=== PATIENT | male | born 1995 | race Hispanic/Latino ===

== ENCOUNTER 2018-01-10 11:49 | Emergency (ER) | payer OTHER ==
[~2018-01-10] VITALS: Ht 162.6 cm; Wt 63.5 kg
[2018-01-10 12:04] VITALS: BP 141/87
--- NOTE | 2018-01-10 13:02 | ED GI/GU/ABDOMINAL COMPLAINT ---
History of Present Illness General Chief Complaint: Abdominal Pain/Flank Pain Stated Complaint: ABD PAIN VOMITING Source: patient Exam Limitations: no limitations Vital Signs & Intake/Output Vital Signs & Intake/Output Vital Signs Date Time Temp Pulse Resp B/P B/P Pulse O2 O2 Flow FiO2 Mean Ox Delivery Rate 01/10 1204 97.0 45 16 141/87 99 Room Air ED Intake and Output 01/11 0000 01/10 1200 Intake Total 1100 Output Total Balance 1100 Intake, IV 1100 Patient 140 lb Weight Weight Reported by Patient Measurement Method Allergies Coded Allergies: No Known Allergies (01/10/18) Reconcile Medications Omeprazole 40 MG CAPSULE.DR 1 CAP PO DAILY gastritis Ondansetron (Zofran Odt) 4 MG TAB.RAPDIS 1 TAB SL TID nausea Promethazine HCl 25 MG TABLET 1 TAB PO Q6P PRN nausea Triage Note: PT TO ED FOR C/C OF UPPER ABD PAIN THAT RADIATES ACROSS ABD. PT REPORTS +NAUSEA, +VOMITING, BUT NOT TODAY. REPORTS CHILLS, AFEBRILE IN TRIAGE. DENIES S/S, LNBM THIS MORNING. Triage Nurses Notes Reviewed? yes Onset: Last week Duration: day(s): Timing: recent history Quality/Severity: burning, throbbing Severity Numbers: 8 Location: epigastric Radiation: no radiation Activities at Onset: none Prior Abdominal Problems: none HPI: 22 year old male presents to the emergency room with abdominal pain. He states he is having an 8/10 intermitteng, stabbing, burning epigastric pain without radiation. He has not tried any medications to relieve his symptoms. He endorses associated vomiting x 2 and diarrhea x 1 on Monday without any more episodes recently, and is currently nauseous. He states his little brother is in the hospital now for vomiting and diarrhea. He denies any issues with eating, eating any unusal food, recent travel, history of abdominal surgery, chest pain, shortness of breath, issues with urination, loss of appetite, constipation, fevers, chills, night sweats, blood in his stool, melena or alcohol use. Past History Travel History Traveled to [place] past 21 day No Medical History Any Pertinent Medical History? see below for history Neurological: NONE EENT: NONE Cardiovascular: NONE Respiratory: NONE Gastrointestinal: NONE Hepatic: NONE Renal: NONE Musculoskeletal: NONE Psychiatric: NONE Endocrine: NONE Blood Disorders: NONE Cancer(s): NONE ESTATE PLANNING PARALEGAL/Reproductive: NONE Surgical History Surgical History: no abdominal surgeries Psychosocial History What is your primary language Urdu Tobacco Use: Quit >30 days ago ETOH Use: denies use Illicit Drug Use: denies illicit drug use Family History Hx Contributory? No Review of Systems Review of Systems Constitutional: Denies: see HPI. EENTM: Denies: no symptoms. Respiratory: Denies: no symptoms. Cardiovascular: Denies: no symptoms. GI: Reports: see HPI. Genitourinary: Denies: no symptoms. Musculoskeletal: Denies: no symptoms. Skin: Denies: no symptoms. Neurological/Psychological: Denies: no symptoms. Hematologic/Endocrine: Denies: no symptoms. Immunologic/Allergic: Denies: no symptoms. All Other Systems: Reviewed and Negative Physical Exam Physical Exam General Appearance: well developed/nourished, alert, awake, mild distress Head: atraumatic, normal appearance Eyes: Bilateral: normal appearance. Ears, Nose, Throat, Mouth: hearing grossly normal Neck: normal inspection, full range of motion Respiratory: normal breath sounds Cardiovascular: regular rate/rhythm Gastrointestinal: normal bowel sounds, epigastric tenderness, no guarding, no rebound tenderness, negative mcburneys point Back: normal inspection Extremities: normal range of motion Neurologic/Psych: awake, alert, oriented x 3 Skin: intact Core Measures ACS in differential dx? No Sepsis Present: No Sepsis Focused Exam Completed? No Progress Differential Diagnosis: appendicitis, biliary colic, cholecystitis, gastritis, pancreatitis, peptic ulcer, PUD/GERD, SBO Plan of Care: Orders Procedure Date/time Status LIPASE 01/10 1301 Complete COMPREHENSIVE METABOLIC PANEL 01/10 1301 Complete CBC WITHOUT DIFFERENTIAL 01/10 1301 Complete AMYLASE 01/10 1301 Complete Laboratory Tests 01/10/18 1318: Anion Gap 15, Estimated GFR > 60, BUN/Creatinine Ratio 15.0, Glucose 114 H, Calcium 9.5, Total Bilirubin 0.9, AST 18, ALT 19 L, Alkaline Phosphatase 60, Total Protein 7.2, Albumin 4.4, Globulin 2.8, Albumin/Globulin Ratio 1.6, Amylase 81, Lipase 62, CBC w Diff NO MAN DIFF REQ, RBC 5.14, MCV 91.2, MCH 30.7, MCHC 33.6, RDW 12.8, MPV 8.1, Gran % 91.0 H, Lymphocytes % 6.0 L, Monocytes % 2.0, Eosinophils % 1.0, Basophils % 0, Absolute Granulocytes 11.7 H, Absolute Lymphocytes 0.8 L, Absolute Monocytes 0.3, Absolute Eosinophils 0.1, Absolute Basophils 0 01/10/18 1301: Urine Color Cancelled, Urine Clarity Cancelled, Urine pH Cancelled, Ur Specific [place] Cancelled, Urine Protein Cancelled, Urine Ketones Cancelled, Urine Nitrite Cancelled, Urine Bilirubin Cancelled, Urine Urobilinogen Cancelled, Ur Leukocyte Esterase Cancelled, Ur Microscopic Cancelled, Urine Hemoglobin Cancelled, Urine Glucose Cancelled Initial ED EKG: none Comments: 01/10/18 Upon reevaluating the patient is sleeping comfortably and appears to be in no distress. His symptoms have resolved and he feels significantly better. Patient was discharged and told to follow up with PCP and [facility]. Started on a PPI. If symptoms persist patient will require a abdominal ultrasound and an upper endoscopy. He understands and agrees with plan of care. Departure Departure Disposition: HOME OR SELF CARE Condition: Stable Clinical Impression Primary Impression: Abdominal pain Secondary Impressions: Gastritis Referrals: Ramos NAVARRO,Bennie Lopez (PCP/Family) Additional Instructions: Take Phenergan and Zofran and omeprazole prescribed. Follow-up with your primary care doctor. Return if any concerns worsening symptoms. Please go over all results of today's visit with your primary care doctor. Contact your primary care doctor to let them know you were here in the emergency room. There may be nonspecific findings which may not be related to your visit today here in the emergency room but may require further evaluation and chronic monitoring by your primary care doctor. If you had a laceration today the chance of foreign body always remains. You should follow-up with your primary care doctor for recheck in 3-5 days for a wound check. If you had an x-ray done there is a chance that a fracture could have been missed on initial read and you should follow-up with your primary care doctor for repeat x-rays if symptoms persist. If your blood pressure was elevated here in the emergency room please have rechecked by [facility] primary care doctor within the next 48. If you were prescribed a narcotic here in the emergency room or any type of controlled substances you're not allowed to drive while taking this medication or operate any type of heavy machinery. Narcotics can make you feel lightheaded dizziness nausea and can cause constipation. You may need to hot die picker a stool softener. Thank you for choosing [facility] emergency room. Please return to the emergency room immediately if you have any other concerns worsening of symptoms. Departure Forms: Customer Survey General Discharge Information Prescriptions: Current Visit Scripts Promethazine HCl 1 TAB PO Q6P PRN nausea #30 TAB Ondansetron (Zofran Odt) 1 TAB SL TID #10 TAB Omeprazole 1 CAP PO DAILY #30 CAP Ref 1
[2018-01-10 13:24] LABS: ABSOLUTE BASOPHIL COUNT 0 /CUMM (0.0-0.2); ABSOLUTE EOSINOPHIL COUNT 0.1 /CUMM (0.0-0.7); ABSOLUTE GRANULOCYTE CT 11.7 /CUMM (1.4-6.5); ABSOLUTE LYMPH COUNT 0.8 /CUMM (1.2-3.4); ABSOLUTE MONOCYTE COUNT 0.3 /CUMM (0.10-0.60); BASOPHIL % 0 % (0.0-2.0); HEMATOCRIT 46.9 % (42-52); MEAN CORPUSCULAR HGB 30.7 PG (27.0-31.0); MEAN CORPUSCULAR HGB CONC 33.6 G/DL (33.0-37.0); MEAN CORPUSCULAR VOLUME 91.2 FL (80.0-94.0); MEAN PLATELET VOLUME 8.1 FL (7.4-10.4); PLATELET COUNT 237 /CUMM (130-400); RBC DISTRIBUTION WIDTH 12.8 % (11.5-14.5); RED BLOOD CELL CT 5.14 /CUMM (4.70-6.10); WHITE BLOOD CELL COUNT 12.9 /CUMM (4.8-10.8)
[2018-01-10] MEDS ORDERED: OMEPRAZOLE40 M1 PO (15:19)
[2018-01-10] MEDS ORDERED: PROMETHAZINE HC25 M3 PO (15:19)
[2018-01-10] MEDS ORDERED: ZOFRAN ODT4 M1 SL (15:19)
== END 2018-01-10 15:28 ==
LOC: ERH 11:49
PROVIDERS: Physician Assistant Medical
DX: K29.70 Gastritis, unspecified, without bleeding (principal); R10.13 Epigastric pain
CPT/HCPCS: 96374; 96375; J2405; J2550